=== PATIENT | female | born 1970 | race Caucasian/White ===

== ENCOUNTER → 2019-04-01 14:42 | Outpatient (CLI) | payer OTHER, SELFPAY ==
--- NOTE | 2019-04-01 14:46 | BI_ITS ---
BILATERAL DIGITAL MAMMOGRAM WITH TOMOSYNTHESIS: Mediolateraloblique and craniocaudal views demonstrate no evidence of dominant parenchymal masses. No cluster of microcalcification or architectural distortion is seen. No evidence of skin thickening. No significant change since 12/17/2011 . Breast Density: There are scattered areas of fibroglandular density. CAD was used to assist in final assessment. IMPRESSION: NORMAL MAMMOGRAM BILATERALLY. ASSESSMENT CATEGORY: BIRADS Category 1: Negative. A letter regarding these results will be sent to the patient by the facility within 30 days. FOLLOW UP RECOMMENDATION: Yearly follow up mammogram recommended. (A) Approximately 10% of breast cancers are not detected by mammography. A normal mammogram should not delay biopsy of a clinically suspicious abnormality. Electronically Signed: Matthew Leigh, at 16:42 EDT Tel , Service support , BI/SCREEN MAMM (CAD) W/MEKA TIRADO
== END ==
PROVIDERS: Family Provider Family Medicine; PCP Family Medicine; Referring Provider Obstetrics & Gynecology; Visit Provider Obstetrics & Gynecology
DX: Z12.31 Encounter for screening mammogram for malignant neoplasm of breast (principal)
CPT/HCPCS: 77063; 77067

== ENCOUNTER → 2019-08-27 09:19 | Outpatient (CLI) | payer OTHER, SELFPAY ==
--- NOTE | 2019-08-27 09:22 | VDLE_ITS ---
Reason For Study: DVT RIGHT GSV is normal. CFV is compressible, spontaneous, phasic, competent and demonstrates normal augmentation. FV is compressible, spontaneous, phasic, competent and demonstrates normal augmentation. POP V is compressible, spontaneous, phasic, competent and demonstrates normal augmentation. T/P Trunk is compressible. PTV is compressible. RT PerV is compressible. Procedure Exam performed in department. A preliminary report was called and/or faxed to [facility]. Interpretation Summary Deep veins of the right lower extremity are patent and compressible segmentally. There is no evidence of right lower extremity deep vein thrombosis. Valvular competence appears intact within the proximal deep venous system on the right . The right great saphenous vein appears patent and compressible segmentally. Ordering Physician: Chato Ziegler Referring Physician: Geronimo Rosen Performed By: Nisa Oliver RVT
== END ==
PROVIDERS: PCP Family Medicine; Referring Provider Podiatrist; Visit Provider Podiatrist
DX: I82.401 Acute embolism and thrombosis of unspecified deep veins of right lower extremity (principal)
CPT/HCPCS: 93971

== ENCOUNTER 2019-09-10 07:00 | Outpatient (RCR) | payer OTHER, SELFPAY ==
--- NOTE | 2019-08-03 08:50 | HP.PTEVAL_ITS ---
Patient's Visit Information HARMAN AGRAWAL is a 49 year old F referred to Physical Therapy by Chato Ziegler DPM with a diagnosis of R plantarfasiitis.. Date of Evaluation: 08/03/19 Physical Therapist: Cj Rai DPT, OCS, CSCS - Visit Plan Frequency: 2x /Week Duration: 4-6 Weeks Plan: 2x/week for 4 weeks for. 1. US nonthermal to R PF origin. 2. STM with graston tool to R PF adn roolout R gastroc -soleus. 3. stretch same. 4. strengthen R foot and ankle. When feeling better, we will need to make sure she stops walking onoutside of foot. Consider dry needling if not improving. - Subjective Findings: Bone spur and heel spur adn plantarfasciitis causing walking pain on R foot adn into hip and LB. Has had this pain noticably since last summer or longer off and on but consistent the last 3 months. Has done cortisone injection adn night splint adn is stretching. Not significantly better. Has orthotics and has started being more consistent with them. Has had them a long time(years) but was not consistent. Started consisitency in the past week. Pain is in R plantarfascia and heel pain to 8/10 if on feet a lot. Typically still 2/10 weven at rest achy. Been months since felt good sitting. Hurts first thing in am. Needs to put shoes on. Sleep is not bad but hip R hip hurts from the way she walks. Works at [employer] access, mostly sitting at computer, hurts upon arising. Hobbies include kids sporting events and can do this but painful. Basic ADLs get done they just hurt. - Pain L heel Pain Intensity (Out of 10): 3 Pain Intensity Range: 2, 9 - Objective Walks I but on the outside of R foot avoid ush off adn heel strike. Stands well with unremarkable frontal plane mechanics. Balance is good. Max tender on R calcaneal plantarsurface, plantarfascia not tender. Metatrasals move well. Big toe moves well. Strength big toe normal and ankle 4/5 without increased pain. AROM0 DF knee straight and 2 degree knees bent B. Knees and hips WFL. - Goals Goal 1:: No tenderness R calcaneus to papation Goal Time Frame: 4-6 Weeks Goal 2:: Pt feel pain level 0 at rest adn no worse than 3/10 with walkign and manageable with a 75% improvement. Goal Time Frame: 4-6 Weeks Goal 3:: Pt I in appropriate management of condition Goal Time Frame: 4-6 Weeks Goal 4:: <25% disability on LEFS - Rehabilitation Potential Physical Therapy Diagnosis: R plantarfasciitis Rehabilitation Potential: Fair - Anticipated Interventions Patient/Client Instruction: Educate patient on: Condition, Plan of Care For the Purpose of:: To decrease pain, To increase tolerance to act ivity/condition/position, To improve gait and locomotor functions Therapeutic Exercise to Include: Strength training, Flexibilty training, Gait and locomotor training, Neuromotor development, Passive ROM, Active ROM For the Purpose of:: To decrease pain, To increase ROM, To improve muscle performance and motor function, To increase tolerance to act ivity/condition/position, To improve gait and locomotor functions Manual Therapy Techniques to Include: Mobilization, Soft tissue mobilization For the Purpose of:: To decrease pain, To increase ROM Ultrasound (thermal/non thermal): Yes - nonthermal R calcaneus For the Purpose of:: To decrease pain, To decrease swelling/inflammation Thank you for the opportunity to evaluate your patient. For Medicare and Medicare HMO plans, please review the plan of care and approve it. It will need to be FAXED BACK to us at [phone] for Medicare purposes. For Medicare only, by signing this I certify the plan of care. Please let me know if there are questions or concerns regarding this plan of care. Physician Signature: Date:
--- NOTE | 2019-08-31 08:48 | HP.PTREVAL_ITS ---
Chato Ziegler, DILEEP, It has been my pleasure to treat HARMAN AGRAWAL over the last 9 visits for R plantarfasiitis.. Please see the progress note below for an update on the physical therapy plan of care! Subjective: No blood clot. Dry needling gave her relief for a few days. Doesn't hurt as bad first thing in am. Pain over weekend was 4/10 if on feet alot. Not alot of downtime this . Was at a web developer dinner. Sore at end of day. Saw doctor last Saturday and to continue dry needling. Still wants to do EPAT. Objective/Function: Full 10 degree DF R ankle with knee straight and bent. Tender minimally R heel today. Walking well. Pleased with progress but it is slow. Dry needling seemed to be very helpful Plan Plan: Continue 1-2x/week for up to 2 weeks as helpful for DN to R PF. Pt to continue other interventions I at home. Will D/C when dry needling improvement plateaus. Goals Goal 1:: No tenderness R calcaneus to papation Goal Time Frame: 4-6 Weeks Goal Progress: Progressing Goal 2:: Pt feel pain level 0 at rest adn no worse than 3/10 with walkign and manageable with a 75% improvement. Goal Time Frame: 4-6 Weeks Goal Progress: Progressing Goal 3:: Pt I in appropriate management of condition Goal Time Frame: 4-6 Weeks Goal Progress: Goal Met Goal 4:: <25% disability on LEFS Goal Progress: Progressing Anticipated Interventions Patient/Client Instruction: Educate patient on: Condition, Plan of Care For the Purpose of:: To decrease pain, To increase tolerance to activity/condition/position, To improve gait and locomotor functions Therapeutic Exercise to Include: Strength training, Flexibilty training, Gait and locomotor training, Neuromotor development, Passive ROM, Active ROM For the Purpose of:: To decrease pain, To increase ROM, To improve muscle performance and motor function, To increase tolerance to activity/condition/posi tion, To improve gait and locomotor functions Manual Therapy Techniques to Include: Mobilization, Soft tissue mobilization For the Purpose of:: To decrease pain, To increase ROM Ultrasound (thermal/non thermal): Yes - nonthermal R calcaneus For the Purpose of:: To decrease pain, To decrease swelling/inflammation Please do not hesitate to contact me at [phone] by phone or if you have questions or concerns regarding this new plan of care! Sincerely, Cj Rai, DPT, OCS, CSCS
--- NOTE | 2019-09-10 08:42 | HP.PTREVAL ---
Chato Ziegler, DILEEP, It has been my pleasure to treat HARMAN AGRAWAL over the last 12 visits for R plantarfasiitis.. Please see the progress note below for an update on the physical therapy plan of care! Subjective: Pt. reprots I feel like I am really starting to feel better.' Pt. reports being 70% better overall. Pt. still has some pain in the AMs with first geting up. She is able to stretch, but not as consistently as we have been recommneding. 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 Objective/Function: pt. tolerated all PT without adverse reaction. Pt. continues to progress. SHe has been doing well with stretching, DN adn US. I talked to her about increasing frequency of stretching. Pt. consents. I talked to her about need of consstency to increase ankle DF ROM allowing for reduced stress to be applied to plantar fascia with walking and end phase of stance phase. Pt. has 12 deg of R DF which is an improvement. She has good strength of ankle and foot intrinics as well. I would recommend as she is improving, but not to the point where she would like to be, that we continue to progress with DN, US and progress stretcing, walking routine. Plan Plan: I would recommend as she is improving, but not to the point where she would like to be, that we continue to progress with DN, US and progress stretcing, walking routine. x2 per week for 2 weeks. Goals Goal 1:: No tenderness R calcaneus to papation Goal Time Frame: 4-6 Weeks Goal Progress: Progressing Goal 2:: Pt feel pain level 0 at rest adn no worse than 3/10 with walkign and manageable with a 75% improvement. Goal Time Frame: 4-6 Weeks Goal Progress: Progressing Goal 3:: Pt I in appropriate management of condition Goal Time Frame: 4-6 Weeks Goal Progress: Goal Met Goal 4:: <25% disability on LEFS Goal Progress: Progressing Anticipated Interventions Patient/Client Instruction: Educate patient on: Condition, Plan of Care For the Purpose of:: To decrease pain, To increase tolerance to activity/condition/position, To improve gait and locomotor functions Therapeutic Exercise to Include: Strength training, Flexibilty training, Gait and locomotor training, Neuromotor development, Passive ROM, Active ROM For the Purpose of:: To decrease pain, To increase ROM, To improve muscle performance and motor function, To increase tolerance to activity/condition/position, To improve gait and locomotor functions Manual Therapy Techniques to Include: Mobilization, Soft tissue mobilization For the Purpose of:: To decrease pain, To increase ROM Ultrasound (thermal/non thermal): Yes - nonthermal R calcaneus For the Purpose of:: To decrease pain, To decrease swelling/inflammation Please do not hesitate to contact me at [phone] by phone or if you have questions or concerns regarding this new plan of care! Sincerely, Marco Sy DPT
--- NOTE | 2019-10-15 12:10 | HP.PTDCSUM ---
It has been my pleasure to treat HARMAN AGRAWAL referred by Chato Ziegler DPM, with the diagnosis of R plantarfasiitis. for a total of 12 visit(s). Discharge Date: 10/15/19 Please see the following information for a summary of their discharge status. Subjective: Pt. reprots I feel like I am really starting to feel better.' Pt. reports being 70% better overall. Pt. still has some pain in the AMs with first geting up. She is able to stretch, but not as consistently as we have been recommneding. 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 L heel Pain Intensity (Out of 10): 0 R heel Pain Intensity (Out of 10): 2 % Improvement: 70 Objective/Function: pt. tolerated all PT without adverse reaction. Pt. continues to progress. SHe has been doing well with stretching, DN adn US. I talked to her about increasing frequency of stretching. Pt. consents. I talked to her about need of consstency to increase ankle DF ROM allowing for reduced stress to be applied to plantar fascia with walking and end phase of stance phase. Pt. has 12 deg of R DF which is an improvement. She has good strength of ankle and foot intrinics as well. I would recommend as she is improving, but not to the point where she would like to be, that we continue to progress with DN, US and progress stretcing, walking routine. Goal 1:: No tenderness R calcaneus to papation Goal Progress: Progressing Goal 2:: Pt feel pain level 0 at rest adn no worse than 3/10 with walkign and manageable with a 75% improvement. Goal Progress: Progressing Goal 3:: Pt I in appropriate management of condition Goal Progress: Goal Met Goal 4:: <25% disability on LEFS Goal Progress: Progressing Plan: Called patient who said she is doing really well with exercises at home and does not wish to return to finish her plan of care at this time. Will discontinue at her request adn she will contac doctor if pain worsens again. If there are questions or concerns regarding this patient's physical therapy, please feel free to call me at [phone]. Thank you for the referral of this patient. Sincerely, Cj Rai, DPT, OCS, CSCS
== END 2019-09-10 19:00 | disposition home or self-care (01) ==
LOC: PT 07:00
PROVIDERS: PCP Family Medicine; Referring Provider Podiatrist; Visit Provider Podiatrist
DX: M72.2 Plantar fascial fibromatosis (principal)
CPT/HCPCS: 97035; 97110; 97140; 97161; 97530

== ENCOUNTER → 2019-10-31 12:18 | Outpatient (CLI) | payer OTHER, SELFPAY ==
[2019-10-31 08:29] VITALS: BMI 30.2
[2019-11-04 15:59] LABS: HPV APTIMA, High Risk Negative (Negative)
== END ==
PROVIDERS: PCP Family Medicine; Referring Provider Obstetrics & Gynecology; Visit Provider Obstetrics & Gynecology
DX: Z12.4 Encounter for screening for malignant neoplasm of cervix (principal)
CPT/HCPCS: 87624; 88175; G0145

== ENCOUNTER 2020-01-25 08:39 | Day surgery (SDC) | payer OTHER, SELFPAY ==
[2019-10-31 08:29] VITALS: BMI 30.2
[2020-01-25] VITALS (10 sets, daily range): BP systolic 78–110; BP diastolic 41–63; PULSE 46–61; RESP 14–18; TEMP 36.3–36.4; O2SAT 100; BMI 36.6
[2020-01-25] MEDS: Lactated Ringers 1,000 ML 100 ML IV (09:21)
--- NOTE | 2020-01-25 10:00 | H&P.OPEN ---
History of Present Illness Date of Admission: 01/25/20 The patient is a 49 year old F here for screening colonoscopy. Patient has never had a colonoscopy in the past. She is not having any abdominal pain or blood in her stool. She has no family history of colon cancer. Past Medical/Surgical History - Planned Operation Planned Operative Procedure/s: COLONOSCOPY Date of Operative Procedure: 01/25/20 Permit Signed: Yes S.O.S: No Is This Patient Having a Total Joint: No - Previous Hospitalizations/Surgeries HX Hospitalizations: No HX of Surgeries: L BREAST BX. GALLBLADDER. SINUS SURGERY. L CATARACT. D&C. TUBAL Any Problems With Anesthesia: No You/Your Family Experience Fever (Hyperthermia) With Anes: No Cholinesterase deficiency: No - Cardiovascular Hx Chest Pain within Last 2 months: No Hx of Irregular Heartbeat and/or Afib: No Hx Heart Attack: No Hx Congestive Heart Failure: No Hx Rheumatic Fever: No Hx Hypertension: No Hx Internal Defibrillator: No Hx Pacemaker: No Hx Cardiac Catheterization: No Hx Cardiac Surgery/Stents/Etc.: No Hx Stress Test: No HX Edema: Yes - KITA LOWER LEGS Hx Pain in Legs when Walking/Leg Cramps: No - Respiratory Chronic Cough: No HX of Shortness of Breath: Yes Hoarseness: No Hx Chronic Obstructive Pulmonary Disease (COPD): No Hx Asthma: No Hx Emphysema: No Hx Sleep Apnea: No Hx Oxygen Use at Home: No Hx Respiratory Tract Infection/Cold (presently): No Do You Snore Loudly (louder than talking or can be heard): No Do You Often Feel Tired/ Fatigued/ Sleepy Dring Daytime?: No Has Anyone Observed You Stop Breathing During Sleep?: No Result (for STOP score): Negative Hx Smoking: No Smoking Status: Never smoker - Gastrointestinal Hx Gastroesophageal Reflux: No Hx Gastrointestinal Disorders: No Hx Gastrointestinal Bleed: No Hx Ulcer: No Hx Hiatal Hernia: No Difficulty Chewing/Swallowing: No Recent Onset of Swallowing Problems: No Special diet followed at home: No Hx Unplanned Weight Loss of 20#: No HX Unplanned Weight Gain of 20#: No - Neurological Hx Seizures: No HX Syncope/Blackout Spells/Unconsciousness: No Hx CVA/Stroke: No Hx Transient Ischemic Attacks (TIA): No Hx Multiple Sclerosis: No Hx Parkinson's Disease: No Hx Head/Neck Injury: No Hx Headaches: No Hx Back Injury/Pain: No Recent Onset of Speech Difficulty: No Restless Legs: Yes Does patient have nerve stimulator: No - Blood Disorder Hx Leukemia: No Bleeding Tendencies: No Hx Deep Vein Thrombosis: No - SUPERFICIAL Hx High Cholesterol: No Blood Transmitted Disease: No Hx Hepatitis: No Hx Cirrhosis: No Hx Anemia: No Hx Blood Disorders: No - Reproduction : No Is Patient Lactating: No Hx Hysterectomy: No Hx Tubal Ligation: Yes Are You Post Menopause: No - Genitourinary Hx Renal Disease: No - Musculoskeletal Hx Arthritis: No Hx Rheumatoid Arthritis: No Hx Gout: No Recent Onset of an Orthopedic Problem: No - Endocrine Hx Diabetes: No Thyroid Disease: No Hx Steroid Therapy: Yes - CORTISONE INJ IN FOOT 6 MO AGO - Psycho/Social Hx Substance Use: No Hx Alcohol Use: No Hx Anxiety: No Hx Depression: No Mental Illness: No Hx Dementia: No - Miscellaneous Hx Cancer: No Recent Exposure to Contagious Disease: No Active MRSA: No Hx of C-Diff: No Any Loose Teeth: No Allergies No Known Allergies Allergy (Verified 01/18/20 14:54) - Discharge Is Pt Admitted From a Half-Way, or a Half-Way: No Who Could Help: After D/C, Where Do you Plan to Go: Return Home - Physical Exam Vitals/I&O's: Vital Signs Temp Pulse Resp BP Pulse Ox 97.3 F L 55 L 14 110/61 100 01/25/20 09:04 01/25/20 09:04 01/25/20 09:04 01/25/20 09:04 01/25/20 09:04 Oxygen Delivery Method Room Air Weight: 213 lb 6.519 oz Body Mass Index (BMI) 36.6 General: Alert, Oriented x3 Lungs: Normal air movement Cardiovascular: Regular rate, Regular Rhythm Abdomen: Soft, Non Tender, Non-Distended Current Medications Lactated Ringer's () 1,000 mls @ 100 mls/hr IV .Q10H HERNANDEZ Last Admin: 01/25/20 09:21 Dose: 100 mls/hr Documented by: Assessment/Plan 49-year-old female for screening colonoscopy 1. I explained endoscopy in detail to the patient. I explained the risks including but not limited to stroke or heart attack with anesthesia, perforation of the GI tract, bleeding, infection. I explained that any of these could necessitate further emergency surgery. The patient understands and all questions were answered sufficiently. The patient wishes to proceed with procedure. We discussed the current risks associated with COVID-19. While it is understood that there is a community spread of COVID-19, the risk of aimee COVID-19 while at [facility] ([facility]) is very low; however, the risk cannot be completely mitigated because of the community spread of the disease. We discussed in detail the risk of exposure to and/or potential harm posed by the COVID-19 virus with having a surgery/procedure at this time versus the risk of delaying the surgery/procedure. It is not possible to know either the risk of delaying the surgery or procedure or chance of getting an infection with perfect accuracy, but a joint decision was made to proceed at this time with the scheduled surgery/procedure as indicated on the consent form. Patient was notified that we will need to comply with any screening or testing [facility] wishes to perform or that surgery may be delayed for any positive results. Janak Dodson MD Pager: [facility] [address] [place] [address] [address] [place] [address] Office: Surgery Risks - Colonoscopy Risks Include but are not Limited To: Risks include but are not limited to: Bleeding, perforation requiring further surgery, inability to complete colonoscopy requiring barium enema.
--- NOTE | 2020-01-25 11:00 | OP.CCLET_ITS ---
01/25/2020 Geronimo Rosen MD [address] [id number] Re : Colonoscopy procedure for Opal Martinze Dear Dr. Rosen This procedure was performed on Saturday, January 25, 2020. My impressions and recommendations are as follows: Impressions : - The entire examined colon is normal on direct and retroflexion views. - No specimens collected. Recommendations : - Discharge patient to home. - Resume previous diet. - Continue present medications. - Repeat colonoscopy in 10 years for screening purposes. My findings are described in the full procedure note, which is enclosed. If I can be of further assistance, please feel free to contact me at Doctor phone number(s): , Work: . Sincerely, Janak Dodson MD 01/25/2020 10:59:39 AM This report has been signed electronically.
--- NOTE | 2020-01-25 11:00 | OP.COLON_ITS ---
Patient Name: Opal Martinez Procedure Date: 01/25/2020 10:04 AM Date of : 1970 Age: 49 Procedure: Colonoscopy Indications: Screening for colorectal malignant neoplasm Providers: Janak Dodson MD Referring MD: Geronimo Rosen MD Medicines: Monitored Anesthesia Care Patient Profile: This is a 49 year old female. Refer to note in patient chart for documentation of history and physical. Last Colonoscopy: none. The patient's first colonoscopy is today. Complications: No immediate complications. Estimated blood loss: Minimal. Procedure: Pre-Anesthesia Assessment: - Prior to the procedure, a History and Physical was performed, and patient medications and allergies were reviewed. The patient's tolerance of previous anesthesia was also reviewed. The risks and benefits of the procedure and the sedation options and risks were discussed with the patient. All questions were answered, and informed consent was obtained. Prior Anticoagulants: The patient has taken no previous anticoagulant or antiplatelet agents. After reviewing the risks and benefits, the patient was deemed in satisfactory condition to undergo the procedure. After I obtained informed consent, the scope was passed under direct vision. Throughout the procedure, the patient's blood pressure, pulse, and oxygen saturations were monitored continuously. The colonoscope was introduced through the anus and advanced to the cecum, identified by appendiceal orifice and ileocecal valve. The colonoscopy was performed without difficulty. The patient tolerated the procedure well. The quality of the bowel preparation was good. Scope In: 10:12:49 AM Scope Withdrawal Time 0 hours 6 minutes 3 seconds Scope Out: 10:27:20 AM Total Procedure Duration Time 0 hours 14 minutes 31 seconds Findings: The entire examined colon appeared normal on direct and retroflexion views. Impression: - The entire examined colon is normal on direct and retroflexion views. - No specimens collected. Recommendation: - Discharge patient to home. - Resume previous diet. - Continue present medications. - Repeat colonoscopy in 10 years for screening purposes. Procedure Code(s): --- Professional --- G0121, Colorectal cancer screening; colonoscopy on individual not meeting criteria for high risk Diagnosis Code(s): --- Professional --- Z12.11, Encounter for screening for malignant neoplasm of colon CPT copyright 2017 [employer]. All rights reserved. The codes documented in this report are preliminary and upon manager stars review may be revised to meet current compliance requirements. Janak Dodson MD 01/25/2020 10:59:39 AM This report has been signed electronically. Number of Addenda: 0 Note Initiated On: 01/25/2020 10:04 AM
== END 2020-01-25 11:30 | disposition home or self-care (01) ==
LOC: EN 08:43 → AC 08:43
PROVIDERS: Anesthesiology; PCP Family Medicine; Referring Provider Family Medicine; Visit Provider Surgery
PROC: 0DJD8ZZ Inspection of Lower Intestinal Tract, Via Natural or Artificial Opening Endoscopic (ICD-10-PCS; CPT 45378; principal; 2020-01-25 09:55)
DX: Z12.11 Encounter for screening for malignant neoplasm of colon (principal)
CPT/HCPCS: 45378; 87635; 94799; J7120; U0003

== ENCOUNTER → 2020-04-04 15:54 | Outpatient (CLI) | payer OTHER, SELFPAY ==
[2019-10-31 08:29] VITALS: BMI 30.2
[2020-01-25 09:04] VITALS: BMI 36.6
--- NOTE | 2020-04-04 15:55 | BI_ITS ---
MAMMOGRAPHY - BILATERAL SCREENING REASON FOR EXAM: Female, 50 years old. Routine annual screening examination. PERTINENT HISTORY: Non-contributory. Remote left stereotactic breast biopsy. TECHNIQUE: Digital bilateral breast meka (3D mammographic acquisition) in the CC and MLO projections. 2-D mediolateral oblique (MLO) and craniocaudad (CC) views of both breasts were obtained. CAD: Full Field Digital Mammography with Computer Added Detection was performed. COMPARISON: Comparison is made with prior examination dated 04/01/2019 and 12/17/2011. FINDINGS: Breast Composition: There are scattered areas of fibroglandular density. There are no dominant masses or suspicious calcifications. No other significant abnormalities are identified. There has been no significant change since the prior study. BI/SCREEN MAMM (CAD) W/MEKA BILAT IMPRESSION: Stable bilateral screening mammogram. Yearly follow-up mammogram recommended. (A) ASSESSMENT CATEGORY: BIRADS Category 1: Negative. A letter regarding these results will be sent to the patient by the facility within 30 days. Approximately 10% of breast cancers are not detected by mammography. A normal mammogram should not delay biopsy of a clinically suspicious abnormality. [id number] Electronically Signed: Glenn Alarcon, at 9:23 EDT , Service support ,
== END ==
PROVIDERS: PCP Family Medicine; Referring Provider Obstetrics & Gynecology; Visit Provider Obstetrics & Gynecology
DX: Z12.31 Encounter for screening mammogram for malignant neoplasm of breast (principal)
CPT/HCPCS: 77063; 77067

== ENCOUNTER → 2020-11-03 08:13 | Outpatient (CLI) | payer OTHER, SELFPAY ==
[2020-10-31 15:01] VITALS: BMI 36.6
[2020-11-03 10:34] LABS: ALB/GLOB Ratio 0.9 RATIO (0.9-2.4); AST(SGOT) 21 U/L (15-37); Alanine Aminotransfer ALT/SGPT 44 U/L (13-56); Albumin, Serum 3.6 g/dL (3.2-5.0); Alkaline Phosphatase 84 U/L (45-117); Anion Gap 2 (5-15); BUN 12 mg/dL (7-18); BUN/Creat Ratio 14.1 RATIO (10-20); Calcium,Total 8.7 mg/dL (8.5-10.1); Chloride 108 mmol/L (98-107); Cholesterol 190 mg/dL (200); Creatinine, Serum 0.85 mg/dL (0.55-1.02); EST Glomerular Filtration Rate 74 mL/min (>60); Est Glom Filt Rate - Afr Amer 90 mL/min (>60); Globulin 3.8 g/dL (2.2-4.2); Glucose 90 mg/dL (74-106); High Density Lipoprotein 71 mg/dL; Potassium 3.9 mmol/L (3.5-5.1); Protein, Total 7.4 g/dL (6.4-8.2); Sodium Level 139 mmol/L (136-145); Thyroid Stim Hormone (TSH) 2.12 uIU/mL (0.358-3.74); Triglycerides 74 mg/dL; Very Low Density Lipoprotein 15 mg/dL (5-40)
[2020-11-03 11:02] LABS: Vitamin D,25 Hydroxy 26.3 ng/mL
== END ==
PROVIDERS: PCP Family Medicine; Referring Provider Obstetrics & Gynecology; Visit Provider Obstetrics & Gynecology
DX: Z13.21 Encounter for screening for nutritional disorder (principal); Z01.419 Encounter for gynecological examination (general) (routine) without abnormal findings
CPT/HCPCS: 36415; 80053; 80061; 82306; 84443

== ENCOUNTER → 2022-08-22 | Outpatient (CLI) | payer OTHER, SELFPAY | END | disposition home or self-care (01) | LOC: LABSPEC 15:37 | PROVIDERS: PCP Family Medicine; Referring Provider Nurse Practitioner Family; Visit Provider Nurse Practitioner Family | DX: R30.0 Dysuria (principal) | CPT/HCPCS: 87086; 87088; 87186 ==

== ENCOUNTER → 2023-10-11 | Outpatient (CLI) | payer OTHER, SELFPAY ==
--- NOTE | 2023-10-11 15:28 | BI_ITS ---
MAMMOGRAPHY - BILATERAL SCREENING REASON FOR EXAM: Female, 53 years old. Routine annual screening examination. PERTINENT HISTORY: Non-contributory. Remote left stereotactic breast biopsy. TECHNIQUE: Digital bilateral breast meka (3D mammographic acquisition) in the CC and MLO projections. 2-D mediolateral oblique (MLO) and craniocaudad (CC) views of both breasts were obtained. CAD: Full Field Digital Mammography with Computer Added Detection was performed. COMPARISON: Comparison is made with prior study dated April 04, 2020 and April 01, 2019. FINDINGS: Breast Composition: There are scattered areas of fibroglandular density. There are no dominant masses or suspicious calcifications. No other significant abnormalities are identified. There has been no significant change since the prior study. BI/SCRN MAMM (CAD)W/MEKA BILAT IMPRESSION: Stable bilateral screening mammogram. Yearly follow-up mammogram recommended. (A) ASSESSMENT CATEGORY: BIRADS Category 1: Negative. A letter regarding these results will be sent to the patient by the facility within 30 days. Approximately 10% of breast cancers are not detected by mammography. A normal mammogram should not delay biopsy of a clinically suspicious abnormality. [id number] Electronically Signed: Glenn Alarcon MD at 8:53 EDT ,
== END | disposition home or self-care (01) ==
PROVIDERS: PCP Family Medicine; Referring Provider Nurse Practitioner Women's Health; Visit Provider Nurse Practitioner Women's Health
DX: Z12.31 Encounter for screening mammogram for malignant neoplasm of breast (principal)
CPT/HCPCS: 77063; 77067

== ENCOUNTER → 2023-11-11 | Outpatient (CLI) | payer OTHER, SELFPAY ==
--- NOTE | 2023-11-11 15:33 | US_ITS ---
EXAM: US PELVIS TRANSABDOMINAL AND TRANSVAGINAL, COMPLETE CLINICAL INDICATION: post menopausal bleeding TECHNIQUE: Transabdominal and transvaginal pelvic ultrasound was performed with grayscale and color Doppler imaging. Transvaginal imaging was used for better evaluation of the endometrium and adnexa. COMPARISON: No relevant prior studies available. FINDINGS: UTERUS/CERVIX: The uterus is anteverted. There is no uterine mass. The uterus measures 8.4 x 4.8 x 3.1 cm. The endometrial stripe measures 0.4 cm in thickness. RIGHT OVARY: Unremarkable. Blood flow is present in the right ovary. The right ovary measures 1.5 x 0.8 x 1.0 cm. No adnexal masses or fluid collections. LEFT OVARY: Left ovary not visualized. FREE FLUID: None. BLADDER: Unremarkable as visualized. Wall is normal thickness for degree of distention. US/Pelvic w/ Transvaginal IMPRESSION: Normal pelvic ultrasound. Electronically Signed: Elder Kuo MD at 1:52 EDT ,
== END | disposition home or self-care (01) ==
PROVIDERS: PCP Family Medicine; Referring Provider Nurse Practitioner Family; Visit Provider Nurse Practitioner Family
DX: N95.0 Postmenopausal bleeding (principal)
CPT/HCPCS: 76830; 76856